=== PATIENT | male | born 1935 | race Caucasian/White ===

== ENCOUNTER 2019-12-26 12:26 | Outpatient (CLI) | payer MEDICARE, SELFPAY ==
--- NOTE | 2019-12-26 12:45 | USCV_ITS ---
Jefe Lott Age: 84 Gender: M : 1935 Exam Date: 12/26/2019 12:45 Ordering Phys: Real Chatterjee MD ([email or web address]) Technologist: Angie Qureshi Exam Location: [facility] – [place] Indication: carotid stenosis Risk Factors: Smoker Previous Vascular Surgery: None Right Brachial BP: / Left Brachial BP: / Right Left Velocity (cm/s) Spectral Plaque Velocity (cm/s) Spectral Plaque Syst/Diast Broadening Syst/Diast Broadening 110.30/8.80 Hetro Prox CCA 81.50 / 2.60 Hetro 116.90/11.00 Hetro Mid CCA 114.40/ 11.80 Hetro 84.90/ 13.20 Hetro Distal CCA 94.70 / 10.50 Hetro 370.30/39.90 Mariano Prox ICA 236.20/ 28.15 Hetro 134.90/16.20 Mid ICA 205.10/ 25.60 Hetro 91.40/ 17.90 Distal ICA 105.20/ 18.40 166.20 Mariano ECA 227.90 Hetro 3.48 ICA/CCA 1.90 Antegrade Vertebral Antegrade 59.80/ 32.50 cm/s 114.4/ 22.30 cm/s 0 Tri Subclavian Tri 145.5 125.2 0 0 FINDINGS Moderate to heavy heterogeneous plaques at the bifurcations and proximal carotid arteries bilaterally Mild to moderate diffuse plaques in the right common carotid artery. Intimal thickening and minimal plaques in the left common carotid artery. Antegrade flow in the vertebral arteries bilaterally Elevated Doppler velocity in the left external carotid artery CONCLUSIONS Moderate to heavy heterogeneous plaques at the bifurcations and proximal carotid arteries bilaterally with velocity elevation, consistent with a 50 to 79% stenosis. Elevated velocity in the external carotid artery on the left side, suggestive of hemodynamically significant stenosis. Compared with the study from 07/01/2019, there is some progression of disease bilaterally, based on the flow velocities Dr Jovanni Rudd MD [facility] (Electronically Signed) Final Date: 27 December 2019 08:46 S
== END 2019-12-26 12:27 | disposition home or self-care (01) ==
LOC: RAD 12:30
PROVIDERS: Family Provider Family Medicine; Visit Provider Internal Medicine Cardiovascular Disease
DX: I65.23 Occlusion and stenosis of bilateral carotid arteries (principal); F17.210 Nicotine dependence, cigarettes, uncomplicated
CPT/HCPCS: 93880

== ENCOUNTER 2020-01-20 10:27 | Outpatient (CLI) | payer MEDICARE, SELFPAY ==
--- NOTE | 2020-01-20 | XR_ITS ---
WS: [id number] CHEST 2 VIEWS HISTORY: COPD WITH EXACERBATION COMPARISON: 09/05/2018 Lungs: Complete opacification of the LEFT thorax, new since 09/05/2018. There is a very tiny amount o f aerated lung at the apex. Hyperexpanded RIGHT lung. Cardiac size: Obscured by the opacification in the LEFT thorax. Mediastinum/Aorta: Mediastinum is shifted to the LEFT due to volume loss in the LEFT thorax. Calcific ation noted in the arch. Bones: Severe osteopenia. XR/XR chest 2V* [id number] IMPRESSION: 1. Complete opacification of the LEFT thorax. Likely due to atelectasis and ob struction of the proximal mainstem bronchus due to shift of the midline structu res to the LEFT and volume loss. Mucous plugging and neoplasm needs to be consi dered as possible etiologies. 2. Chronic emphysema. 3. Recommend chest CT with IV contrast for further evaluation.
== END 2020-01-20 10:28 | disposition home or self-care (01) ==
LOC: RADOUTREAD 11:39
PROVIDERS: Family Provider Family Medicine; PCP Family Medicine; Visit Provider Family Medicine
DX: Z01.89 Encounter for other specified special examinations (principal)

== ENCOUNTER 2020-01-29 09:48 | Outpatient (CLI) | payer MEDICARE, SELFPAY ==
--- NOTE | 2020-01-29 10:00 | CT_ITS ---
WS: [id number] CT CHEST TECHNIQUE: Noncontrast CT of the chest with coronal and sagittal reformatted images. CLINICAL INFORMATION: lung mass COMPARISON: 018 DLP: 735.[address] scans at [facility] use at least one of these dose optimization techniques: automat ed exposure control; mA and/or kV adjustment per patient size (includes targeted exams where dose is matched to clinical indication); or iterative reconstruction. FINDINGS: Advanced chronic emphysematous changes. Diffuse interstitial thickening throughout the left lung. Mas slike consolidation in the left lung base and along the left fissure and left hilum. Small to moderat e left pleural effusion with diffuse volume loss throughout the left lung. Left mainstem bronchus is partially obstructed with secretions and masslike soft tissue thickening along the left hilum and the fissure. Findings suspicious for neoplasm with superimposed pneumonia. Recommend bronchoscopy for fu rther evaluation. Diffuse interstitial thickening throughout the left line may be due to edema versus lymphangitic spre ad of disease. No anterior mediastinal or right hilar lymphadenopathy. Aortic calcification. Coronary calcification. Densely calcified upper abdominal aorta. Right lung is well aerated. Noncalcified pulmonary nodule r ight lower lobe measuring 3 mm. Noncalcified nodule right upper lobe measuring 3.7 mm. Mild thoracic kyphosis and thoracic scoliosis. CT/CT chest wo con [id number] IMPRESSION: 1. Diffuse volume loss left lung may be due to prior surgery. Recommend correl ation with clinical history. 2. Moderate left pleural effusion with masslike consolidation involving the le ft hilum and left lower lobe. Obstruction of the left mainstem bronchus distall y with secretions. Suspected left hilar mass suspicious for malignancy. Recomme nd bronchoscopy for further evaluation. 3. Tiny pericardial effusion. 4. A few noncalcified tiny nodules right lung. Recommend 6-12 month follow-up. 5. Advanced chronic emphysematous changes. 6. Dense vascular calcification including coronary.
== END 2020-01-29 09:49 | disposition home or self-care (01) ==
LOC: RADWPI 09:51
PROVIDERS: Family Provider Family Medicine; PCP Family Medicine; Visit Provider Internal Medicine Critical Care Medicine
DX: J98.09 Other diseases of bronchus, not elsewhere classified (principal); J90 Pleural effusion, not elsewhere classified; I31.3 Pericardial effusion (noninflammatory); J43.9 Emphysema, unspecified; I25.10 Atherosclerotic heart disease of native coronary artery without angina pectoris; R91.8 Other nonspecific abnormal finding of lung field
CPT/HCPCS: 71250

== ENCOUNTER → 2020-01-31 09:41 | Day surgery (SDC) | payer OTHER, SELFPAY ==
[2020-01-31 09:55] VITALS: BP 91/58; PULSE 93; RESP 20; TEMP 36.5; O2SAT 96
--- NOTE | 2020-01-31 10:48 | XR_ITS ---
WS: [id number] XR chest 1V portable [id number] REASON FOR EXAM: POST THORACENTESIS FINDINGS: Post thoracentesis on the left side there is improvement in the wideout configuration. Ther e is atelectasis and shift of the mediastinum to the left and we continue the suspected neoplasm. XR/XR chest 1V portable [id number] IMPRESSION: Improved left pleural effusion. Atelectasis effusion with shift of the mediastinum to the left.
[2020-01-31 11:15] VITALS: BP 91/58; PULSE 93; RESP 20; TEMP 36.5; O2SAT 96
--- NOTE | 2020-01-31 11:44 | SUR.PREOP ---
patient here for thoracentesis. does not want this procedure done in OR room. Procedure done in prep room 2 in ops. charting for this done on [facility] in [facility] intervention.
--- NOTE | 2020-01-31 11:46 | SUR.PREOP ---
Pt placed on monitor for thoracentesis. procedure done by , assisted by Angel Peña, Jose C Veloz, Alida Farfan RN. pt on 2L O2 nasal cannula. Pt tolerated procedure well. CXR performed and pt d/c per order. pt left by wheelchair with on home O2, which he came to OPS on.
[2020-01-31 11:54] LABS: Mononuclear %, Pleural Fluid 95 %; Mononuclear, Pleural Fluid # 0.523 10^3/uL; Polynuclear Cells, Pleural % 5 %
[2020-01-31 12:11] LABS: LDH Pleural Fluid 142 U/L; Pleural Fluid Albumin 1.5 g/dL; Total Protein Pleural Fluid 2.4 g/dL
[2020-01-31 14:45] LABS: Color, Pleural Fluid Pale Yellow (Pale Yellow); Left Pleural Fluid Analysis Left Lung
[2020-01-31 14:46] LABS: Appearance, Pleural Fluid CLOUDY (CLEAR)
--- NOTE | 2020-01-31 15:37 | PM.ACPR ---
Procedure/Consent Time out: Time Out Performed: Yes Consent: Consent for Procedure: Consent obtained from patient Procedure Narrative: Name of the procedure: Left thoracentesis. Indication: Suspicion for malignant pleural effusion Anesthetics: Local anesthesia with 1% lidocaine. IV pain medication: None. Description of the procedure: The procedure was explained to the patient in detail including the risks and a consent was obtained. The left hemithorax was scanned with ultrasound to find a safe fluid pocket. Moderate free-flowing fluid was noted. There was no complexity. Following identification of the fluid pocket the site was marked. The site was cleaned using sterile technique. Lidocaine 1% was injected into the skin and the subcutaneous tissue. Subsequently, the periosteum in the parietal pleural was also anesthetized using lidocaine. The pleural space was entered in the posterior axillary line in the left seventh intercostal space. Serosanguineous fluid was aspirated. About 400 cc of fluid was aspirated. Sample: The pleural fluid was sent for cell count and differential, pH, protein, LDH, albumin, Gram stain and culture, fungal stain and culture, AFB stain and culture and cytology. Postprocedure chest x-ray did not show any pneumothorax. Acute Procedures Epistaxis Control: Time out performed: Yes
== END ==
PROVIDERS: Family Provider Family Medicine; PCP Family Medicine; Visit Provider Internal Medicine Critical Care Medicine
PROC: 0BJ08ZZ Inspection of Tracheobronchial Tree, Via Natural or Artificial Opening Endoscopic (ICD-10-PCS; CPT 31622; principal; 2020-01-31 10:00)
DX: J90 Pleural effusion, not elsewhere classified (principal)
CPT/HCPCS: 32554; 12345; 71045; 80500; 82042; 82945; 83615; 83986; 84157; 87070; 87075; 87205; 88112; 88305; 89050